=== PATIENT | male | born 1935 | race Caucasian/White ===

== ENCOUNTER 2016-08-12 15:14 | Outpatient (CLI) ==
[2016-08-12 15:33] LABS: BASOPHILS % (AUTO) 0.3 % (0.0-3.0); EOSINOPHILS # (AUTO) 0.1 K/ul (0.0-0.7); HEMATOCRIT 38.8 % (42.0-52.0); IMMATURE GRANULOCYTE % (AUTO) 0.3 % (0.0-5.0); LYMPHOCYTES # (AUTO) 1.6 K/uL (0.60-3.4); LYMPHOCYTES % (AUTO) 23.4 (10.0-50.0); MEAN CORPUSCULAR HEMOGLOBIN 30.4 pg (27.0-31.0); MEAN CORPUSCULAR HGB CONC 33.5 (31.8-35.4); MEAN CORPUSCULAR VOLUME 90.7 fl (80.0-94.0); MONOCYTES # (AUTO) 0.5 K/uL (0.4-2.0); MONOCYTES % (AUTO) 7.1 (0-10); NEUTROPHILS # (AUTO) 4.8 K/ul (2.0-6.9); NEUTROPHILS % (AUTO) 67.9; PLATELET COUNT 339 10^3/uL (140-440); RED BLOOD COUNT 4.28 10^6/ul (4.70-6.10); WHITE BLOOD COUNT 7.02 K/ul (4.2-10.2)
[2016-08-12 15:50] LABS: ANION GAP 12.4; BUN/CREATININE RATIO 20.4; CALCIUM 9.5 mg/dL (8.2-10.2); CREATININE 0.98 mg/dL (0.60-1.10); POTASSIUM 4.4 mmol/L (3.5-5.1)
== END 2016-08-12 15:15 | disposition home or self-care (01) ==
LOC: LAB 15:14
PROVIDERS: ATTEND Family Medicine
DX: Z51.81 Encounter for therapeutic drug level monitoring (principal); Z79.01 Long term (current) use of anticoagulants; R19.7 Diarrhea, unspecified; K62.5 Hemorrhage of anus and rectum
CPT/HCPCS: 36415; 80048; 85025; 85610

== ENCOUNTER 2016-08-25 09:15 | Outpatient (RCR) ==
--- NOTE | 2016-08-11 13:01 | RS.OPPTEV2 ---
Date of Note: 08/10/16 Visit #: 1 Date of Evaluation: 08/10/16 Payer Source: MEDICARE ([facility]) Date of Onset/Injury/Change in Status: 07/22/16 Surgery Performed?: Yes Treatment Diagnosis: Right knee pain, Right knee stiffness, s/p Right TKA History of Condition/Mechanism of Injury:: Patient received Home Health Physical Therapy following D/C after surgery. Reports prior HS tear in the right LE and prior arthroscopy of the right knee several years ago. Prior Level of Function.....Patient was independent with: ADL's, Self Care, Ambulation/Mobility, Community Integration/Access Functional Limitations: Sleep, Self Care, ADL's, Reaching, Pushing, Pulling, Lifting, Carrying, Sitting, Standing, Bending, Squatting, Ambulation, Community Access/Integration Current Subjective/complaints:: Patient reports ambulating with a walker. Reports he is doing well with transfers and ambulation. He has tried using a cane in the house, but is not using it very much. States he ices the knee consistently 2-3 times a day. Reports he has no stairs in his home. Has a few stairs to get into the home, but also has a ramp at a back entrance. He has grab bars in his bathroom. States pain has significantly limited his sleep. States the most sleep he has gotten was ~ three hours last night. He volunteers that he has a fitness watch/tracker and he has been trying to get in a certain amount of steps a day. [facility] therapy told him he is doing too much. His reports that he is not good about performing the HEP he was given by . Treatment Side (optional): Right Medical History Medical History: Hypertension, Cancer Medical History Comments:: Basal cell skin Ca, vertigo Surgical History Comments:: Right knee scope Smoking Status: Never smoker Hx Home Medications: Zanaflex, Cymbalta, oxycodone Patient's Goals: His goal is to return to his previous level of function and get relief of knee pain. Pain Assessment - Pain Description Pain Location: right knee Current Pain Intensity: 2/10 Worst Pain Intensity: 9/10 Functional Outcome Measure LE Functional Scale: 24 (24/80=70% impaired) - G Codes & Severity Modifier G Codes & Modifier: Mobility current CL. Mobility goal CJ Source of G Code score: LE functional scale Observation - Observation Inspection: Right knee demonstrates a clean, well-healing incision line. Patient states incision was glued shut and tape was removed this week by the doctor. Demonstrates bruising along the medial thigh, calf, and ankle. Girth Measurement Lower: Right LE: superior patella 49 cm. inferior patella 41 cm. malleoli 28.5 cm Gait - Gait Pattern Gait Comments: Patient ambulates with a rolling walker with decreased stance on the right LE. Demonstrates decreased right knee and hip flexion during swing phase and decrease heel strike. - Left Knee ROM Left Knee Extension: full extension Left Knee Flexion: 130 (degrees AROM) - Right Knee ROM Right Knee Extension: -6 degrees from full extension Right Knee Flexion: 110 (degrees AROM) Knee ROM Limitations: Soft Tissue Tightness, Pain - Left Knee Strength Left Knee Extension: 4+ Good + Left Knee Flexion: 4+ Good + - Right Knee Strength Right Knee Extension: 4 Good Right Knee Flexion: 4 Good Palpation Comments:: Tenderness along the medial knee joint. Sensation - Sensation Comments: Reports sensation is intact other than numbness in the right great toe. Interventions - Exercise/Activities/Manual Therapy Exercises/Activities: Assisted patient with right knee flexion and extension. Patient performed on the stationary bike for 8 mins, full revolutions. Reviewed HEP and advised him to concentrate more on the HEP than on how many steps he gets in a day. Recommended he add standing hip knee flexion to HEP and to perform the exercises 2-3 x day. Manual Therapy: NA HOME EXERCISE PROGRAM: HEP given by Home Health and added standing knee flexion - Charges Total Direct Minutes: 48 mins Total Treatment Time: 48 mins Procedures billed for this date of service:: EVAL Low Short Term Goals Goal #1: Pt independent and compliant with HEP. Goal to be met by: 08/25/16 Goal #2: Right knee flexion to 120 degrees. Goal to be met by: 08/25/16 Goal #3: Right knee strength 4+/5. Goal to be met by: 08/25/16 Goal #4: Right knee extension to -2 degrees. Goal to be met by: 08/25/16 Furniture Delivery Driver Goals Goal #1: Patient independent with HEP to maintain DC status Goal to be met by: 09/20/16 Goal #2: Pt able to sleep without interruption from right knee pain. Goal to be met by: 06/20/17 Goal #3: LE Functional Scale 60/80 Goal to be met by: 09/20/16 Goal #4: Pt will amb. w/o assist. device, community distances w/ min. gait deviation Goal to be met by: 09/20/16 Plan - Treatment to be Provided Procedures: Therapeutic Exercises, Therapeutic Activity, Manual Therapy, Patient Education Modalities: Electrical Stimulation, Cryotherapy - Treatment Plan Frequency: 3 X week Duration: 4 weeks ORDER # VISITS AND/OR THROUGH DATE: 09/20/16 - Treatment Code (1) Knee pain Qualifiers: Laterality: right Chronicity: acute Qualified Description: Acute pain of right knee Qualifier Code(s): (M25.561) Pain in right knee (2) Aftercare following joint replacement surgery Qualifiers: Joint replacement surgery site: knee Laterality: right Qualified Description: Aftercare following right knee joint replacement surgery Qualifier Code(s): (Z47.1) Aftercare following joint replacement surgery, ( Z96.651) Presence of right artificial knee joint (3) Muscle weakness Comments: M62.81 Right quads and HS weakness
--- NOTE | 2016-08-16 11:16 | RS.OPPTDN ---
Subjective Date of Note: 08/15/16 Visit #: 2 Date of Evaluation: 08/10/16 Payer Source: MEDICARE ([facility]) Treatment Diagnosis: Right knee pain, Right knee stiffness, s/p Right TKA Current Subjective/complaints:: Patient says he is concerned he is not doing as well as he thinks he should. C/o not sleeping but 2-3 hours. He began walking with a cane today. He says that he uses ice often. Reports pain is not terrible, but takes Tylenol. Says he walks a lot, but his (R) hamstring is what gives him a problem. *Precautions: Only precautions were to "not over do it" per patient. Pain Assessment - Pain Description Pain Location: right knee, R hamstring Pain Description: Tenderness upon palpation. Current Pain Intensity: 05/13 - Treatment Modality: Electrical Stim Unattended Parameters/Method Applied: hivolt 4 large pads @ 145-155 pk volts x 20 mins AFTER therex Treatment Area: R knee Patient Position: Supine - Heat/Cryotherapy Treatment: Cryotherapy Interventions - Exercise/Activities/Manual Therapy Exercises/Activities: Assisted patient with right knee flexion and extension. Stretching to R heel cords, Patient performs multiple reps of QS, (attempted Heel slides, but produced pain), SAQ, hip abd/add, SLR, DF with red tband, LAQ, hip flexion in sitting. Patient performed on the stationary bike for 8 mins, full revolutions. Reviewed HEP and encouraged continued use of ice. Total minutes of Exercise: 30 Manual Therapy: NA HOME EXERCISE PROGRAM: HEP given by Home Health and added standing knee flexion - Objective Findings Observations,measurements,etc.: Incision demo well healing, no redness, mild swelling - Charges Total Direct Minutes: 30 Total Treatment Time: 50 Procedures billed for this date of service:: cp, estim(un), ex2 Assessment: Patient demo good flexion to 112 degrees with limitation on ext due to hamstring soreness and hx of ham tear. Patient has very limited sleep since surgery. His expresses concern about it and was encouraged to talk to his MD about possible short term sleep aid. He continues to sleep in recliner, unable to get into his bed. He is consistent with walking routine and icing, but encouraged to perform HEP. Patient Education: Education of diagnosis, Body/Joint mechanics, Home Exercise Program, Home Safety, Activity Modification, Education of Plan of Care Short Term Goals Goal #1: Pt independent and compliant with HEP. Goal to be met by: 08/25/16 Goal #2: Right knee flexion to 120 degrees. Goal to be met by: 08/25/16 Progress towards Goal:: Progressing Goal #3: Right knee strength 4+/5. Goal to be met by: 08/25/16 Progress towards Goal:: Progressing Goal #4: Right knee extension to -2 degrees. Goal to be met by: 08/25/16 Assistant Director Of Admissions Goals Goal #1: Patient independent with HEP to maintain DC status Goal to be met by: 09/20/16 Goal #2: Pt able to sleep without interruption from right knee pain. Goal to be met by: 09/20/16 Goal #3: LE Functional Scale 60/80 Goal to be met by: 09/20/16 Goal #4: Pt will amb. w/o assist. device, community distances w/ min. gait deviation Goal to be met by: 09/20/16 Plan PLAN OF CARE EXPIRES ON:: 09/20/16 ORDER # VISITS AND/OR THROUGH DATE: 09/20/16 PLAN: Progress Exercises
--- NOTE | 2016-08-16 12:07 | RS.OPPTDN ---
Subjective Date of Note: 08/16/16 Visit #: 3 Date of Evaluation: 08/10/16 Payer Source: MEDICARE ([facility]) Treatment Diagnosis: Right knee pain, Right knee stiffness, s/p Right TKA *Precautions: Only precautions were to "not over do it" per patient. Pain Assessment - Pain Description Pain Location: right knee, R hamstring Pain Description: Tenderness upon palpation. Current Pain Intensity: 2/10 - Heat/Cryotherapy Treatment: Cryotherapy (15 mins. prior to exercises) Interventions - Exercise/Activities/Manual Therapy Exercises/Activities: 40 mins. of ankle pumps,quad sets,heelslides,SLR's,joint mobs of Grade II mobs. of AP glides.Patient education of proper techniques for exercises. Total minutes of Exercise: 40 Manual Therapy: NA Total minutes of Manual Therapy: 0 HOME EXERCISE PROGRAM: HEP given by Home Health and added standing knee flexion - Objective Findings Observations,measurements,etc.: 120 active flexion,extension is WNL passively, actively is -7 to-5 degrees. - Charges Total Direct Minutes: 40 Total Treatment Time: 55 Procedures billed for this date of service:: cp,ex 3 Assessment: Patient requires for technique and form with exercises.He has functional R knee motion.He needs assist with SLR's,tends to [place] himself and has difficulty with keeping the knee fully extended.Instructed patient and his to assist with the lifting of the leg,and let the patient do the eccentric motion. Patient Education: Education of diagnosis, Body/Joint mechanics, Home Exercise Program, Home Safety, Activity Modification, Education of Plan of Care Short Term Goals Goal #1: Pt independent and compliant with HEP. Goal to be met by: 08/25/16 Progress towards Goal:: Progressing Goal #2: Right knee flexion to 120 degrees. Goal to be met by: 08/25/16 (120 ,but inconsistent today) Progress towards Goal:: Partially Met Goal #3: Right knee strength 4+/5. Goal to be met by: 08/25/16 Progress towards Goal:: Progressing Goal #4: Right knee extension to -2 degrees. Goal to be met by: 08/25/16 Long-Term Goals Goal #1: Patient independent with HEP to maintain DC status Goal to be met by: 09/20/16 Goal #2: Pt able to sleep without interruption from right knee pain. Goal to be met by: 09/20/16 Goal #3: LE Functional Scale 60/80 Goal to be met by: 09/20/16 Goal #4: Pt will amb. w/o assist. device, community distances w/ min. gait deviation Goal to be met by: 09/20/16 Plan PLAN OF CARE EXPIRES ON:: 09/20/16 ORDER # VISITS AND/OR THROUGH DATE: 09/20/16 PLAN: Continue Plan of Care
--- NOTE | 2016-08-18 11:03 | RS.CXNS ---
Date of scheduled appointment: 08/18/16 Type: Cancel Reason for Cancel/NS: Patient not feeling well.
--- NOTE | 2016-08-22 13:00 | RS.OPPTDN ---
Subjective Date of Note: 08/22/16 Visit #: 4 Date of Evaluation: 08/10/16 Payer Source: MEDICARE ([facility]) Treatment Diagnosis: Right knee pain, Right knee stiffness, s/p Right TKA Current Subjective/complaints:: Patient reports he is doing welll,able to drive to appt. today.He enters clinic without assistive device.He is more aware of doing his HEP on a regular basis as we recommended. *Precautions: Only precautions were to "not over do it" per patient. Pain Assessment - Pain Description Pain Location: right knee, R hamstring Pain Description: Dull, Aching Pain Description: Tenderness upon palpation. Current Pain Intensity: 2/10 Other Comments regarding Pain:: Intermittent - Heat/Cryotherapy Treatment: Cryotherapy (15 mins. after exercises) Interventions - Exercise/Activities/Manual Therapy Exercises/Activities: 50 mins. total ,beginning on bike x 10 mins.standing exercises of calf raises,marching in place,LAQ with 5#.Therapy ball on wall doing mini-squats,then leg press @ 60 #,all exercises 3/10-15 reps.Supine AROM is 120 flexion,extension -3 today.HEP review. Total minutes of Exercise: 50 Manual Therapy: NA Total minutes of Manual Therapy: 0 HOME EXERCISE PROGRAM: HEP given by Home Health and added standing knee flexion - Charges Total Direct Minutes: 40 Total Treatment Time: 65 Procedures billed for this date of service:: ex 3,cp Assessment: Continues to progress well,improved active extension of knee today.He has steadier gait,enters clinic without using cane today.He has soft end feel with knee flexion ,has moderate edema present today. Patient Education: Education of diagnosis, Body/Joint mechanics, Home Exercise Program, Home Safety, Activity Modification, Education of Plan of Care Patient demonstrates compliance with HEP?: Yes Short Term Goals Goal #1: Pt independent and compliant with HEP. Goal to be met by: 08/25/16 Progress towards Goal:: Progressing Goal #2: Right knee flexion to 120 degrees. Goal to be met by: 08/25/16 Progress towards Goal:: Partially Met Goal #3: Right knee strength 4+/5. Goal to be met by: 08/25/16 Progress towards Goal:: Progressing Goal #4: Right knee extension to -2 degrees. Goal to be met by: 08/25/16 Progress towards Goal:: Progressing Trimmer Sawyer Goals Goal #1: Patient independent with HEP to maintain DC status Goal to be met by: 09/20/16 Progress towards goal: Progressing Goal #2: Pt able to sleep without interruption from right knee pain. Goal to be met by: 09/20/16 Goal #3: LE Functional Scale 60/80 Goal to be met by: 09/20/16 Goal #4: Pt will amb. w/o assist. device, community distances w/ min. gait deviation Goal to be met by: 09/20/16 Plan PLAN OF CARE EXPIRES ON:: 09/20/16 ORDER # VISITS AND/OR THROUGH DATE: 09/20/16 PLAN: Continue Plan of Care
--- NOTE | 2016-08-24 14:11 | RS.OPPTDN ---
Subjective Date of Note: 08/24/16 Visit #: 5 Date of Evaluation: 08/10/16 Payer Source: MEDICARE ([facility]) Treatment Diagnosis: Right knee pain, Right knee stiffness, s/p Right TKA Current Subjective/complaints:: Patient reports feeling better today,using ice and Tylenol about 6 hours apart seems to help the R knee pain. *Precautions: Only precautions were to "not over do it" per patient. Pain Assessment - Pain Description Pain Location: right knee, R hamstring Pain Description: Dull Current Pain Intensity: minimal Interventions - Exercise/Activities/Manual Therapy Exercises/Activities: 50 mins. total ,beginning on bike x 10 mins.then 3/15 each of ankle pumps on leg press @ 45 #,60# for leg press both LE's,single leg press for R @ 15 #.Standing with therapy ball behind the back for mini-squats x 15 reps.Seated LAQ's with 5# ,3/10.Supine AROM is 122 - 128 degrees,extension is -5 with quad sets. Total minutes of Exercise: 50 Manual Therapy: NA Total minutes of Manual Therapy: 0 HOME EXERCISE PROGRAM: HEP given by Home Health and added standing knee flexion - Charges Total Direct Minutes: 40 Total Treatment Time: 50 Procedures billed for this date of service:: ex 3 Assessment: Progressing well,less edema ,less warmth in R knee today.He has increased flexion with less difficulty.He reports tenderness on the medial aspect of joint line.He is motivated to improve,entered clinic today without use of assistive device. Patient Education: Body/Joint mechanics, Home Exercise Program Patient demonstrates compliance with HEP?: Yes Short Term Goals Goal #1: Pt independent and compliant with HEP. Goal to be met by: 08/25/16 Progress towards Goal:: Progressing Goal #2: Right knee flexion to 120 degrees. Goal to be met by: 08/25/16 Progress towards Goal:: Met Goal #3: Right knee strength 4+/5. Goal to be met by: 08/25/16 Progress towards Goal:: Progressing Goal #4: Right knee extension to -2 degrees. Goal to be met by: 08/25/16 Progress towards Goal:: Progressing Hyperbaric Tech Goals Goal #1: Patient independent with HEP to maintain DC status Goal to be met by: 09/20/16 Progress towards goal: Progressing Goal #2: Pt able to sleep without interruption from right knee pain. Goal to be met by: 09/20/16 Goal #3: LE Functional Scale 60/80 Goal to be met by: 09/20/16 Goal #4: Pt will amb. w/o assist. device, community distances w/ min. gait deviation Goal to be met by: 09/20/16 Plan PLAN OF CARE EXPIRES ON:: 09/20/16 ORDER # VISITS AND/OR THROUGH DATE: 09/20/16 PLAN: Progress Exercises
--- NOTE | 2016-08-25 10:04 | RS.OPPTDN ---
Subjective Date of Note: 08/25/16 Visit #: 6 Date of Evaluation: 08/10/16 Payer Source: MEDICARE ([facility]) Treatment Diagnosis: Right knee pain, Right knee stiffness, s/p Right TKA Current Subjective/complaints:: Patient says he has already been walking this morning. He says he has had stiffness and swelling remaining to the R knee. Reports he will be getting R facial stitches removed tomorrow. Patient says last night was the first night he was able to sleep in his bed. *Precautions: Only precautions were to "not over do it" per patient. Pain Assessment - Pain Description Pain Location: right knee, R hamstring Pain Description: Dull Pain Description: Tenderness upon palpation. Current Pain Intensity: minimal Interventions - Exercise/Activities/Manual Therapy Exercises/Activities: 48 mins ,beginning on bike x 10 mins.then 1/15 each of ankle pumps on leg press @ 45# 2/15 30#. 60# for leg press both LE's,single leg press for R @ 15 #.Standing with therapy ball behind the back for mini- squats x 15 reps.Seated LAQ's with 5# ,3/10. Standin# for R hip ext, flexion, and abd 2x10. Manual Therapy: NA HOME EXERCISE PROGRAM: HEP given by Home Health and added standing knee flexion - Charges Total Direct Minutes: 48 Total Treatment Time: 38 Procedures billed for this date of service:: ex3 Patient Education: Education of diagnosis, Body/Joint mechanics, Home Exercise Program, Home Safety, Activity Modification, Education of Plan of Care Patient demonstrates compliance with HEP?: Yes Short Term Goals Goal #1: Pt independent and compliant with HEP. Goal to be met by: 08/25/16 Progress towards Goal:: Progressing Goal #2: Right knee flexion to 120 degrees. Goal to be met by: 08/25/16 Progress towards Goal:: Met Goal #3: Right knee strength 4+/5. Goal to be met by: 08/25/16 Progress towards Goal:: Progressing Goal #4: Right knee extension to -2 degrees. Goal to be met by: 08/25/16 Progress towards Goal:: Progressing Penitentiary Goals Goal #1: Patient independent with HEP to maintain DC status Goal to be met by: 09/20/16 Progress towards goal: Progressing Goal #2: Pt able to sleep without interruption from right knee pain. Goal to be met by: 09/20/16 Goal #3: LE Functional Scale 60/80 Goal to be met by: 09/20/16 Goal #4: Pt will amb. w/o assist. device, community distances w/ min. gait deviation Goal to be met by: 09/20/16 Plan PLAN OF CARE EXPIRES ON:: 09/20/16 ORDER # VISITS AND/OR THROUGH DATE: 09/20/16 PLAN: Progress Exercises
== END 2016-08-31 ==
PROVIDERS: ATTEND Orthopaedic Surgery
DX: M25.561 Pain in right knee (principal); M25.661 Stiffness of right knee, not elsewhere classified; Z96.651 Presence of right artificial knee joint

== ENCOUNTER 2016-09-13 13:00 | Outpatient (RCR) ==
--- NOTE | 2016-09-02 11:45 | RS.OPPTDN ---
Subjective Date of Note: 09/02/16 Visit #: 7 Date of Evaluation: 08/10/16 Payer Source: MEDICARE ([facility]) Treatment Diagnosis: Right knee pain, Right knee stiffness, s/p Right TKA Current Subjective/complaints:: Patient says he has had lab work that this week that resulted in Polymyalgia Rheumatica. He says he is currently on treatment consisting of prednisone. He says he has felt weak and unable to walk as much as he was able to before, but was able to walk about 1/3 mile Monday. He says he became quite fatigued and was unsure if he could walk the distance to get back to his car. States he is finally able to sleep about 6 hours and uses ice at least twice daily as well as Tylenol. *Precautions: Only precautions were to "not over do it" per patient. Pain Assessment - Pain Description Pain Location: right knee, R hamstring Pain Description: Tenderness upon palpation. Current Pain Intensity: stiff and general fatigue Interventions - Exercise/Activities/Manual Therapy Exercises/Activities: 36 mins ,beginning on bike x 12 mins. All other routine therex performed slightly modified. Leg presses bilateral #30 3/15, 15# single leg only x 6. Patient supine for calf and ham stretching and ROM R knee. Performs: QS, SLR, SAQ 5#, ham curls and DF with blue tband 3/15. Standin # hip abd, ext 2x15. Measurements taken. Manual Therapy: NA HOME EXERCISE PROGRAM: HEP given by Home Health and added standing knee flexion - Objective Findings Observations,measurements,etc.: Flex 131 active in supine, -3 extension - Charges Total Direct Minutes: 36 Total Treatment Time: 36 Procedures billed for this date of service:: ex2 Assessment: Patient has follow up today with Dr. Ro. He has progressed with ROM well, but has missed this week related to new diagnosis of Polymyalgia Rheumatica. He is being treated with steroids at this time and has resumed walking routine and HEP along with daily icing to the R knee. He should improve with current treatment addressing ND so that he may advance with TKA protocol. Patient Education: Education of diagnosis, Body/Joint mechanics, Home Exercise Program, Home Safety, Activity Modification, Education of Plan of Care Patient demonstrates compliance with HEP?: Yes Short Term Goals Goal #1: Pt independent and compliant with HEP. Goal to be met by: 05/25/17 Progress towards Goal:: Progressing Goal #2: Right knee flexion to 120 degrees. Goal to be met by: 08/25/16 Progress towards Goal:: Met Goal #3: Right knee strength 4+/5. Goal to be met by: 08/25/16 Progress towards Goal:: Progressing Goal #4: Right knee extension to -2 degrees. Goal to be met by: 08/25/16 Progress towards Goal:: Progressing Conservation Technician Goals Goal #1: Patient independent with HEP to maintain DC status Goal to be met by: 09/20/16 Progress towards goal: Progressing Goal #2: Pt able to sleep without interruption from right knee pain. Goal to be met by: 09/20/16 Progress towards goal: Progressing Comments: improving sleep this week Goal #3: LE Functional Scale 60/80 Goal to be met by: 09/20/16 Goal #4: Pt will amb. w/o assist. device, community distances w/ min. gait deviation Goal to be met by: 09/20/16 Plan PLAN OF CARE EXPIRES ON:: 09/20/16 ORDER # VISITS AND/OR THROUGH DATE: 09/20/16 PLAN: Progress Exercises (attend follow up with ortho today and hopefully receive order to continue with PT)
--- NOTE | 2016-09-06 14:16 | RS.OPPTDN ---
Subjective Date of Note: 09/06/16 Visit #: 6 Date of Evaluation: 08/10/16 Payer Source: MEDICARE ([facility]) Treatment Diagnosis: Right knee pain, Right knee stiffness, s/p Right TKA Current Subjective/complaints:: Reports the knee feels better today,dull ache only. *Precautions: Only precautions were to "not over do it" per patient. Pain Assessment - Pain Description Pain Location: right knee, R hamstring Pain Description: Dull Current Pain Intensity: stiff and general fatigue Interventions - Exercise/Activities/Manual Therapy Exercises/Activities: 50 mins ,beginning on bike x 10 mins. Leg presses bilateral #30 06/15, 15# single leg only 06/10 Patient supine for calf and ham stretching and ROM R knee. Performs: QS, SLR, SAQ 5#, ham curls and DF with blue tband 06/15. AROM is 125,progressed to 130,extension is -3 with SAQ,WNL in closed chain. Total minutes of Exercise: 50 Manual Therapy: NA HOME EXERCISE PROGRAM: HEP given by Home Health and added standing knee flexion - Charges Total Direct Minutes: 40 Total Treatment Time: 50 Procedures billed for this date of service:: ex 3 Assessment: Patient has improved quad firing as the edema lessens.He also has increased active flexion today with no report of sharp pain.He is compliant to HEP. Patient Education: Body/Joint mechanics, Home Exercise Program, Home Safety, Activity Modification, Education of Plan of Care Patient demonstrates compliance with HEP?: Yes Short Term Goals Goal #1: Pt independent and compliant with HEP. Goal to be met by: 08/25/16 Progress towards Goal:: Partially Met Goal #2: Right knee flexion to 120 degrees. Goal to be met by: 08/25/16 Progress towards Goal:: Met Goal #3: Right knee strength 4+/5. Goal to be met by: 08/25/16 Progress towards Goal:: Progressing Goal #4: Right knee extension to -2 degrees. Goal to be met by: 08/25/16 Progress towards Goal:: Progressing Shelter Goals Goal #1: Patient independent with HEP to maintain DC status Goal to be met by: 09/20/16 Progress towards goal: Progressing Goal #2: Pt able to sleep without interruption from right knee pain. Goal to be met by: 09/20/16 Progress towards goal: Progressing Goal #3: LE Functional Scale 60/80 Goal to be met by: 09/20/16 Goal #4: Pt will amb. w/o assist. device, community distances w/ min. gait deviation Goal to be met by: 09/20/16 Progress towards goal: Progressing Plan PLAN OF CARE EXPIRES ON:: 09/20/16 ORDER # VISITS AND/OR THROUGH DATE: 09/20/16 PLAN: Progress Exercises
--- NOTE | 2016-09-08 14:02 | RS.OPPTDN ---
Subjective Date of Note: 09/08/16 Visit #: 9 Date of Evaluation: 08/10/16 Payer Source: MEDICARE ([facility]) Treatment Diagnosis: Right knee pain, Right knee stiffness, s/p Right TKA Current Subjective/complaints:: Reports feeling very fatigued today,but pleased with the progress of the knee. *Precautions: Only precautions were to "not over do it" per patient. Pain Assessment - Pain Description Pain Location: right knee Pain Description: Dull Current Pain Intensity: not rated Interventions - Exercise/Activities/Manual Therapy Exercises/Activities: 50 mins ,beginning on bike x 10 mins. Leg presses bilateral #45,60 75# 06/15, then 06/10 @ 90 #.Laq's with black theraband ,.LAQ with 5 # 06/15 reps.Standing hip abd /add with black theraband,06/10 each.AROM is 130 flexion,extension -3.Passive extension is WNL. Total minutes of Exercise: 50 Manual Therapy: NA Total minutes of Manual Therapy: 0 HOME EXERCISE PROGRAM: HEP given by Home Health and added standing knee flexion - Charges Total Direct Minutes: 40 Total Treatment Time: 50 Procedures billed for this date of service:: ex 3 Assessment: Patient tolerates increased resistive exercises well today,with fatigue only,except intermittent ,minimal pain on the medial aspect of the R knee.He has improved gait pattern,no use of assistive device. Patient Education: Education of diagnosis, Body/Joint mechanics, Home Exercise Program, Home Safety, Activity Modification, Education of Plan of Care Patient demonstrates compliance with HEP?: Yes Short Term Goals Goal #1: Pt independent and compliant with HEP. Goal to be met by: 08/25/16 Progress towards Goal:: Partially Met Goal #2: Right knee flexion to 120 degrees. Goal to be met by: 08/25/16 Progress towards Goal:: Met Goal #3: Right knee strength 4+/5. Goal to be met by: 08/25/16 Progress towards Goal:: Partially Met Goal #4: Right knee extension to -2 degrees. Goal to be met by: 08/25/16 Progress towards Goal:: Partially Met Longterm Goals Goal #1: Patient independent with HEP to maintain DC status Goal to be met by: 09/20/16 Progress towards goal: Progressing Goal #2: Pt able to sleep without interruption from right knee pain. Goal to be met by: 09/20/16 Progress towards goal: Progressing Goal #3: LE Functional Scale 60/80 Goal to be met by: 09/20/16 Goal #4: Pt will amb. w/o assist. device, community distances w/ min. gait deviation Goal to be met by: 09/20/16 Progress towards goal: Partially Met Plan PLAN OF CARE EXPIRES ON:: 09/20/16 ORDER # VISITS AND/OR THROUGH DATE: 09/20/16 PLAN: Progress Exercises
--- NOTE | 2016-09-13 14:18 | RS.OPPTDN ---
Subjective Date of Note: 09/13/16 Visit #: 10 Date of Evaluation: 08/10/16 Payer Source: MEDICARE ([facility]) Treatment Diagnosis: Right knee pain, Right knee stiffness, s/p Right TKA Current Subjective/complaints:: Patient says his knee is perfect, it's just the polymyalgia is his hold up. He says current treatment for that is not helping and will be going to the MD tomorrow for it. He says he has been walking 2,000 + steps daily, going up/down 10 steps, using elliptical x 3 mins daily, and sleeping better (8 hours+ with CPAP). He says he had near fall over the weekend though due to fatigue from condition causing his feet to be unsteady. *Precautions: Only precautions were to "not over do it" per patient. Pain Assessment - Pain Description Pain Location: general fatigue, no pain to the knee Pain Description: Dull Current Pain Intensity: not rated Interventions - Exercise/Activities/Manual Therapy Exercises/Activities: 50 mins ,beginning on bike x 11 mins. Leg presses bilateral #45,60 75# 3/15, then 3/10 @ 90#, and x 1 rep at 105#. Standing hip abd /add with black theraband,3/10 each. Reassessment and verified MMT for bilateral hip flexers, Quads, and shoulder abd (per request). Reviewed HeP. Manual Therapy: NA HOME EXERCISE PROGRAM: HEP given by Home Health and added standing knee flexion - Objective Findings Observations,measurements,etc.: LE Functional Index: 60/80 or 25% impairment compared to eval: 24/80 or 70% - Charges Total Direct Minutes: 39 Total Treatment Time: 50 Procedures billed for this date of service:: ex2 Assessment: Patient has met all STG and most LTG related to his TKA. He has been treated for polymyalgia and continues to struggle with endurance because of it. He will be addressing it with his PCP tomorrow. He is satisfied and agreed to with holding further therapy because of his progress. Patient Education: Education of diagnosis, Body/Joint mechanics, Home Exercise Program, Home Safety, Activity Modification, Education of Plan of Care Patient demonstrates compliance with HEP?: Yes Short Term Goals Goal #1: Pt independent and compliant with HEP. Goal to be met by: 08/25/16 Progress towards Goal:: Met Goal #2: Right knee flexion to 120 degrees. Goal to be met by: 08/25/16 Progress towards Goal:: Met Goal #3: Right knee strength 4+/5. Goal to be met by: 08/25/16 Progress towards Goal:: Met (tested today) Goal #4: Right knee extension to -2 degrees. Goal to be met by: 08/25/16 Progress towards Goal:: Met (with active QS) Credit Risk Associate Goals Goal #1: Patient independent with HEP to maintain DC status Goal to be met by: 09/20/16 Progress towards goal: Met Goal #2: Pt able to sleep without interruption from right knee pain. Goal to be met by: 09/20/16 Progress towards goal: Met Comments: using CPAP machine Goal #3: LE Functional Scale 60/80 Goal to be met by: 09/20/16 Progress towards goal: Met Goal #4: Pt will amb. w/o assist. device, community distances w/ min. gait deviation Goal to be met by: 09/20/16 Progress towards goal: Met Plan PLAN OF CARE EXPIRES ON:: 09/20/16 ORDER # VISITS AND/OR THROUGH DATE: 09/20/16 PLAN: Plan for Discharge
--- NOTE | 2016-09-13 15:47 | RS.OPPTDC ---
Date of Discharge: 09/13/16 Date of Evaluation: 08/10/16 Number of Visits: 10 Treatment Diagnosis: Right knee pain, Right knee stiffness, s/p Right TKA Current Complaints/Gains: Patient reports he is pleased with his motion and strength of the right knee. He is able to walk 2,000 steps daily, performs on elliptical 3 mins a day and now sleeps up to 8 hours. Denies right knee pain , but struggles with his new diagnosis of Polymyalgia and limited endurance. Pain Assessment - Pain Description Pain Location: general fatigue, no pain to the knee Pain Description: Dull Current Pain Intensity: not rated Functional Outcome Measure LE Functional Scale: 60 (60/80=25% impairment) - G Codes & Severity Modifier G Codes & Modifier: MOb D/C CJ. Mob Goal CJ Source of G Code score: LE functional scale Gait - Gait Pattern Gait Comments: patient ambulates without an assistive device with minimal gait deviation. Interventions - Exercise/Activities/Manual Therapy Exercises/Activities: NA Manual Therapy: NA HOME EXERCISE PROGRAM: HEP given by Home Health and added standing knee flexion - Objective Findings Observations,measurements,etc.: Right knee flexion 131 degrees. Demonstrates nearly symmetrical weight bearing during gait, without an assistive device. 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 He demonstrate to be very active and agrees to continue with HEP. He needs no further skilled therapy at this time. Short Term Goals Goal #1: Pt independent and compliant with HEP. Goal to be met by: 08/25/16 Progress towards Goal:: Met Goal #2: Right knee flexion to 120 degrees. Goal to be met by: 08/25/16 Progress towards Goal:: Met Goal #3: Right knee strength 4+/5. Goal to be met by: 08/25/16 Progress towards Goal:: Met (tested today) Goal #4: Right knee extension to -2 degrees. Goal to be met by: 08/25/16 Progress towards Goal:: Met (with active QS) Certified Orthotist Practice Manager Goals Goal #1: Patient independent with HEP to maintain DC status Goal to be met by: 09/20/16 Progress towards goal: Met Goal #2: Pt able to sleep without interruption from right knee pain. Goal to be met by: 09/20/16 Progress towards goal: Met Goal #3: LE Functional Scale 60/80 Goal to be met by: 09/20/16 Progress towards goal: Met Goal #4: Pt will amb. w/o assist. device, community distances w/ min. gait deviation Goal to be met by: 09/20/16 Progress towards goal: Met Plan Reason for Discharge:: All Goals Met
== END 2016-09-30 ==
PROVIDERS: ATTEND Orthopaedic Surgery
DX: Z96.651 Presence of right artificial knee joint (principal)

== ENCOUNTER 2017-04-23 11:59 | Outpatient (CLI) | END 2017-04-23 12:00 | disposition home or self-care (01) | LOC: NONPT 11:59 | PROVIDERS: ATTEND Family Medicine | DX: R30.0 Dysuria (principal) | CPT/HCPCS: 81001 ==

== ENCOUNTER 2017-05-24 12:36 | Outpatient (RCR) ==
[2017-05-24 13:17] VITALS: TEMP 98.1; BMI 29.2
[2017-05-29 13:36] VITALS: BP 138/52
== END 2017-05-31 ==
LOC: CAR.REHAB 12:36
PROVIDERS: ATTEND Clinical Nurse Specialist
DX: Z95.1 Presence of aortocoronary bypass graft (principal)
CPT/HCPCS: 93798

== ENCOUNTER 2017-06-01 06:55 | Outpatient (RCR) ==
[2017-06-30 09:57] VITALS: BP 124/56
== END 2017-07-01 ==
LOC: CAR.REHAB 06:55
PROVIDERS: ATTEND Clinical Nurse Specialist
DX: Z95.1 Presence of aortocoronary bypass graft (principal)
CPT/HCPCS: 93798

== ENCOUNTER 2017-07-03 06:32 | Outpatient (RCR) ==
[2017-07-31 10:09] VITALS: BP 128/56
== END 2017-07-31 23:59 ==
LOC: CAR.REHAB 06:32
PROVIDERS: ATTEND Internal Medicine
DX: Z95.1 Presence of aortocoronary bypass graft (principal)
CPT/HCPCS: 93798

== ENCOUNTER 2017-08-01 07:23 | Outpatient (RCR) ==
[2017-08-14 10:18] VITALS: BP 142/54
== END 2017-08-31 23:59 ==
LOC: CAR.REHAB 07:23
PROVIDERS: ATTEND Internal Medicine
DX: Z95.1 Presence of aortocoronary bypass graft (principal)
CPT/HCPCS: 93798

== ENCOUNTER 2017-09-01 07:12 | Outpatient (RCR) | END 2017-09-06 15:03 | disposition home or self-care (01) | LOC: CAR.REHAB 07:12 | PROVIDERS: ATTEND Internal Medicine | DX: Z95.1 Presence of aortocoronary bypass graft (principal) ==

== ENCOUNTER 2017-09-12 19:27 | Outpatient (CLI) | END 2017-09-12 19:47 | disposition short-term general hospital (02) | LOC: AMBL 19:27 | PROVIDERS: ATTEND Family Medicine | DX: M54.9 Dorsalgia, unspecified (principal); R53.1 Weakness; Z98.890 Other specified postprocedural states ==

== ENCOUNTER 2017-09-15 19:34 | Inpatient (IN) ==
[2017-09-15] MEDS ORDERED: ZANAFLEX PO PRN (21:26)
[2017-09-15] MEDS ORDERED: VALIUM PO PRN (21:29)
[2017-09-15] MEDS ORDERED: AMMONIUM LACTATE TP PRN (22:00)
[2017-09-15 22:27] VITALS: BMI 31.6
[2017-09-16] MEDS: PERCOCET 10-325 PO PRN ×3 (03:21→15:21)
[2017-09-16] MEDS: PRILOSEC PO SCH ×2 (07:04→16:53)
[2017-09-16] MEDS ORDERED: ZANAFLEX PO PRN (08:30)
[2017-09-16] MEDS ORDERED: NON-FORMULARY MEDICATION (Atorvastatin Calcium [Lipitor] 40 MG) PO SCH (09:00)
[2017-09-16] MEDS: ASPIRIN EC PO SCH (09:32)
[2017-09-16] MEDS: PREDNISONE PO SCH (09:32)
[2017-09-16] MEDS: ZESTRIL PO SCH (09:33)
[2017-09-16] MEDS: VITAMIN D PO SCH (09:35)
[2017-09-16] MEDS: PROSCAR PO SCH (09:36)
[2017-09-16] MEDS: MULTIVITAMIN TABLET PO SCH (09:36)
[2017-09-16] MEDS: COLACE PO SCH (09:36)
[2017-09-16] MEDS: TIMOPTIC 0.5% OPTH OP SCH ×2 (09:36→20:11)
[2017-09-16] MEDS: BALANCED B-100 PO SCH (09:36)
[2017-09-16] MEDS ORDERED: K-DUR ONE (15:31)
[2017-09-16] MEDS: SINGULAIR PO SCH (20:11)
[2017-09-16] MEDS: XALATAN OP SCH (20:11)
[2017-09-16] MEDS: LIPITOR PO SCH (20:11)
[2017-09-16] MEDS: FLONASE NAS SCH (20:11)
[2017-09-16] MEDS: FLOMAX PO SCH (20:11)
[2017-09-16] MEDS ORDERED: FLUTICASONE 50 MCG IH SCH (21:00)
[2017-09-16] MEDS: DULCOLAX RC PRN (21:32)
[2017-09-17] MEDS: PERCOCET 10-325 PO PRN ×4 (01:56→21:32)
[2017-09-17] MEDS: PRILOSEC PO SCH ×2 (05:49→17:25)
[2017-09-17] MEDS: ASPIRIN EC PO SCH (09:11)
[2017-09-17] MEDS: COLACE PO SCH (09:12)
[2017-09-17] MEDS: PREDNISONE PO SCH (09:13)
[2017-09-17] MEDS: PROSCAR PO SCH (09:14)
[2017-09-17] MEDS: MULTIVITAMIN TABLET PO SCH (09:14)
[2017-09-17] MEDS: ZESTRIL PO SCH (09:14)
[2017-09-17] MEDS: BALANCED B-100 PO SCH (09:15)
[2017-09-17] MEDS: VITAMIN D PO SCH (09:16)
[2017-09-17] MEDS: TIMOPTIC 0.5% OPTH OP SCH ×2 (09:16→20:27)
[2017-09-17] MEDS ORDERED: SENNA PO PRN (10:56)
[2017-09-17] MEDS: MIRALAX PO SCH (12:22)
[2017-09-17] MEDS: LIPITOR PO SCH (20:26)
[2017-09-17] MEDS: FLOMAX PO SCH (20:26)
[2017-09-17] MEDS: SINGULAIR PO SCH (20:26)
[2017-09-17] MEDS: XALATAN OP SCH (20:27)
[2017-09-17] MEDS: FLONASE NAS SCH (20:34)
[2017-09-18] MEDS: PERCOCET 10-325 PO PRN ×5 (03:11→22:05)
[2017-09-18] MEDS: PRILOSEC PO SCH ×2 (05:56→18:58)
[2017-09-18] MEDS: SENNA PO PRN ×2 (08:40→22:02)
[2017-09-18] MEDS: ASPIRIN EC PO SCH (10:20)
[2017-09-18] MEDS: PROSCAR PO SCH (10:21)
[2017-09-18] MEDS: PREDNISONE PO SCH (10:21)
[2017-09-18] MEDS: COLACE PO SCH (10:21)
[2017-09-18] MEDS: ZESTRIL PO SCH (10:21)
[2017-09-18] MEDS: BALANCED B-100 PO SCH (10:21)
[2017-09-18] MEDS: VITAMIN D PO SCH (10:21)
[2017-09-18] MEDS: MULTIVITAMIN TABLET PO SCH (10:22)
[2017-09-18] MEDS: TIMOPTIC 0.5% OPTH OP SCH ×2 (10:23→20:55)
[2017-09-18] MEDS: MIRALAX PO SCH (10:30)
--- NOTE | 2017-09-18 10:39 | RS.PTINEVL ---
Subjective - Patient information Date of Evaluation: 09/18/17 Date of Arrival on Unit: 09/15/17 Admitted From:: Facility Transfer Diagnosis: s/p lumbar surgery 09/11/17, decline in functional ability, gait difficulty Usual Living Arrangement: With Spouse Living Arrangement Comments: stable Home Environment: House, Stairs (few) (into shower), Ramp Medical History: Hypertension, Arthritis Medical History Comments:: Chronic Kidney disease-3, Depression, sleep apnea, polymyalgia rheumatica, neuropathy,anemia, chronic back pain. Surgical History: Knee Replacement (Right knee 1-2 years ago,), CABG (in May 2017) Subjective Information/ Patient Comments:: Patient states he went home the day after surgery. States it took five people to get him into his home. States he was sitting in his recliner at home and when he tried to get out of the chair, he slid down into the floor. States he was then taken back to [facility]. He wants to be able to get up from the floor because he is afraid he will fall again. Reports pain into the left groin and muscle spasms in his trunk. While ambulating, rates his pain in the left groin 6-10/10. Reports he had pain medication at 8:40 this morning. - Level of function Prior to this admission, the patient could do the following:: Independent Selfcare, Independent ADL's, Independent Ambulation, Drive, Participated in Social Activities Outside home Abilities prior to this admission: Prior to his surgery, Mr. Caputo was independent with all activities. He is known by our therapy staff to be a very motivated, active person. Current Level of Function: Partially Dependent Current Equipment Used at Home: Cane, rolling walker, w/c, raised toilet, step in shower, outside ramp, 36 " doors Interventions - Objective Patient Orientation: Person, Place, Time, Situation Current Interventions: Telemetry Observation: Pt able to flora LSO brace with minimal assistance with velcro straps. Range of Motion - ROM Right Lower Extremity AROM: WFL's Left Lower Extremity AROM: WFL's Muscle Strength - Muscle Strength Comments:: LE strength is generally 4- to 4/5 of bilateral LE's. Sensation - Sensation Right Lower Extremity Sensation: Intact/Normal Left Lower Extremity Sensation: Intact/Normal Comments: Reports intact sensation to light touch. Balance - Sitting Balance and Reactions Static Sitting Balance: Good Dynamic Sitting Balance: Good - Standing Balance and Reactions Static Standing Balance: Good (-) Dynamic Standing Balance: Fair (+) Functional Mobility - Bed Mobility Scooting: Supervision Supine to Sit: CGA, Min Assist, 1 person assist, Verbal Cues, Tactile Cues - Transfers Sit to Stand: CGA, Min Assist, 2 person assist, Verbal Cues, Tactile Cues Stand to Sit: Min Assist, 1 person assist, 2 person assist, Verbal Cues, Tactile Cues Stand Pivot Transfers: CGA, Min Assist, 1 person assist, 2 person assist, Verbal Cues, Tactile Cues - Safety Awareness Safety Awareness: Fair KUMAR INDEX SCORE: 40 Ambulation - Ambulation Weight Bearing Status: FWB Assistive Device Used: Rolling Walker Orthotic/Prosthetic Device: Yes (LSO brace ) Distance: 50 feet X 2 , patient followed with chair Assistance needed with Ambulation: Min Assist, Mod Assist, 2 person assist, Verbal Cues, Tactile Cues Gait Deviations: Wide Based gait, Short stride, Lacks step continuity Ambulation Comments: Tinetti Assessment score of 28. High fall risk Factors Affecting Ambulation: Pain, Weakness, Decreased ROM, Decreased Safety, Limited Endurance Treatment time - Units charged Gait trainin (17 mins) - Time with patient Total treatment time: 37 (mins) Patient Education - Education Patient Education: Education of diagnosis, Education of Plan of Care Teaching Recipient: Patient Teaching Methods: Discussion Comments: Discussed with patient that we would not be working on getting in and out of the floor. Explained that that would be too much stress on his back since his recent surgery. Assessment - Assessment Problem List:: Decreased level of function, Requires training/education, Decreased safety/Risk of falls, Weakness, Pain limits previous level of function Rehab Potential: Good Further Therapy Indicated?: Yes Candidate for Swing Bed for Therapy Services?: Patient is a good candidate for Swing Bed. He is at a high risk for falls per Tinetti Assessment and overall presentation, and shows need for skilled care at this time due to limited transfers and ambulation due to leg weakness and pain. Evaluation Complexity: HISTORY: Medium (lumbar sx 09/11/17, CABG 05/21, right TKA , chronic back pain, neuropathy), EXAM OF BODY SYSTEMS: Medium, CLINICAL PRESENTATION: Medium, CLINICAL DECISION MAKING: Medium Short Term Goals GOAL #1: Pt to log roll independently with verbal cues. Goal to be met by: 09/21/17 GOAL #2: Sit to stand with consistent use of UE's from seat with min of one. Goal to be met by: 09/21/17 GOAL #3: Pt to amb. with min assist of one with continuous steps, 75 feet. Goal to be met by: 09/22/17 Skilled Nursing Goals GOAL #1: All bed mobility independent. Goal to be met by: 09/25/17 GOAL #2: All transfers independent with good safety. Goal to be met by: 09/25/17 GOAL #3: Pt to amb. independently 200 feet with supervision and good safety. Goal to be met by: 09/25/17 Plan Plan of Care: Therapeutic EX, Neuromuscular Re-Educ, Therapeutic Activity, Self- Care/Home Management Modalities: Cold Pack/Cryotherapy Frequency of Treatment: 1-2 X day, as tolerated Duration of Treatment: 1 Week Anticipated Discharge Destination: Home Treatment Diagnosis (ICD 10 Codes): M62.81 general weakness, R26.2 difficulty walking, M54.5 back pain Has the Physician been added for Co-signature?: Yes
--- NOTE | 2017-09-18 11:39 | RS.OTINEVL ---
Subjective - Patient information Date of Evaluation: 09/18/17 Date of Arrival on Unit: 09/15/17 Admitted From:: Facility Transfer Usual Living Arrangement: With Spouse Living Arrangement Comments: stable Home Environment: House, Stairs (few) (into shower), Ramp Medical History: Hypertension, Arthritis Medical History Comments:: Chronic Kidney disease-3, Depression, sleep apnea, polymyalgia rheumatica, neuropathy,anemia, chronic back pain. Surgical History: Knee Replacement (Right knee 1-2 years ago,), CABG (in May 2017) Surgical History Comments:: Back surgery, double bypass surgery, CABG Subjective Information/ Patient Comments:: "It hurts in this left leg." "My back doesn't hurt right now. They had to cut off the bones because they were hitting the nerves." - Level of function Prior to this admission, the patient could do the following:: Independent Selfcare, Independent ADL's, Independent Ambulation, Drive, Participated in Social Activities Outside home Abilities prior to this admission: Pt was independent with all ADLS. He was driving a truck. Pt was able to dress himself and he would use a rolling walker intermittently right before surgery. Current Level of Function: Partially Dependent Current Equipment Used at Home: Cane, rolling walker, w/c, raised toilet, step in shower, outside ramp, 36 " doors Pain Assessment - Pain Pain Score: 7 Side: left Pain Location Body Site: Thigh Pain Aggravating Factors: ADL's, Changing Position, Standing Pain Alleviating Factors: Medication, Position Change Interventions - Objective Patient Orientation: Person, Place, Time, Situation Current Interventions: IV's, Telemetry Observation: Pt is a very active 81 y/o patient. Pt is very motivated to get home quickly. Pt is in alot of pain in the left thigh. Pt has a difficult time with sit to stand, with dressing on the BLE. Pt has difficult reaching his feet. Pt tires with functional mobility and has decreased activity tolerance. Interventions - ROM Right Upper Extremity AROM: Slight limitation Left Upper Extremity AROM: Slight limitation - Strength Right Upper Extremity Strength: Mild Weakness Left Upper Extremity Strength: Mild Weakness - Sensation Right Upper Extremity Sensation: Intact/Normal Left Upper Extremity Sensation: Intact/Normal Balance - Sitting Balance Static Sitting Balance: Good Dynamic Sitting Balance: Good - Standing Balance Static Standing Balance: Poor Dynamic Standing Balance: Poor - Comments Balance Assessment Comments: Fair- ADL Skills - Self Feeding Self Feeding: Independent - Grooming Grooming: Min Assist - Bathing Bathing UE: Min Assist, 1 person assist Bathing LE: Max Assist, 1 person assist - Dressing Dressing UE: Min Assist Dressing LE: Max Assist, 1 person assist - Toilet Management Toileting Management: Mod Assist, 1 person assist Functional Mobility - Bed Mobility Rolling R/L: Independent Scooting: Independent Supine to Sit: Min Assist Sit to Supine: Min Assist - Transfers Sit to Stand: Mod Assist Stand to Sit: Min Assist Stand Pivot Transfers: Mod Assist - Ambulation Weight Bearing Status: FWB Assistive Device Used: Rolling Walker Assistance needed with Ambulation: Min Assist - Safety Awareness Safety Awareness: Good KUMAR INDEX SCORE: 40 Additional Treatment Performed - Additional units charged ADL: 18 - Time with patient Total treatment time: 50 Activities Would you be interested in leaving your room for activities?: Yes What types of things do you enjoy doing? 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[employer] , President of [employer] Patient Interests:: Watching Television, Visiting/Socializing Patient Education Patient Education: Education of diagnosis, Home Safety, Education of Plan of Care Teaching Recipient: Patient Teaching Methods: Discussion Assessment Problem List:: Decreased level of function, Requires training/education, Decreased safety/Risk of falls, Weakness, Pain limits previous level of function Rehab Potential: Good Further Therapy Indicated?: Yes Candidate for Swing Bed for Therapy Services?: yes Evaluation Complexity: HISTORY: Medium, EXAM OF BODY SYSTEMS: Medium, CLINICAL DECISION MAKING: Medium Short Term Goals - Goals GOAL 1: Pt to increase LB dressing to Moderate assistance Goal to be met by: 09/20/17 GOAL 2: To increase dyn. Std. activity tolerance to 15 minutes with rests PRN. Goal to be met by: 09/20/17 GOAL 3: To increase toilet transfer to minimal assistance. Goal to be met by: 09/21/17 GOAL 4: To increase BUE strength to 4+/5 for ambulation with a RW. Skilled Nursing Goals GOAL 1: To increase independence of ADLS to CGA with AE. Goal to be met by: 09/22/17 GOAL 2: to increase dyn. std. activity tolerance to 20 minutes. Goal to be met by: 09/22/17 GOAL 3: To increase BUE strength to 5/5 for ambulation with a RW. Goal to be met by: 09/22/17 Plan Plan of Care: Therapeutic EX, Neuromuscular Re-Educ, Therapeutic Activity, Self- Care/Home Management Frequency of Treatment: 1-2 X day, as tolerated Duration of Treatment: 1 Week Anticipated Discharge Destination: Home Treatment Diagnosis (ICD 10 Codes): muscle weakness Has the Physician been added for Co-signature?: Yes
[2017-09-18] MEDS: DULCOLAX RC PRN (13:49)
[2017-09-18] MEDS ORDERED: PROTONIX PO STA (17:20)
[2017-09-18] MEDS: FLONASE NAS SCH (20:54)
[2017-09-18] MEDS: XALATAN OP SCH (20:54)
[2017-09-18] MEDS: LIPITOR PO SCH (20:55)
[2017-09-18] MEDS: SINGULAIR PO SCH (20:56)
[2017-09-18] MEDS: FLOMAX PO SCH (20:56)
[2017-09-19] MEDS: PERCOCET 10-325 PO PRN ×5 (03:24→20:58)
[2017-09-19] MEDS: PROTONIX PO SCH (05:46)
[2017-09-19] MEDS: COLACE PO SCH (09:27)
[2017-09-19] MEDS: MULTIVITAMIN TABLET PO SCH (09:27)
[2017-09-19] MEDS: BALANCED B-100 PO SCH (09:27)
[2017-09-19] MEDS: PREDNISONE PO SCH (09:27)
[2017-09-19] MEDS: ZESTRIL PO SCH (09:27)
[2017-09-19] MEDS: PROSCAR PO SCH (09:28)
[2017-09-19] MEDS: ASPIRIN EC PO SCH (09:28)
[2017-09-19] MEDS: VITAMIN D PO SCH (09:28)
[2017-09-19] MEDS: MIRALAX PO SCH (09:28)
[2017-09-19] MEDS: TIMOPTIC 0.5% OPTH OP SCH ×2 (16:53→20:59)
[2017-09-19] MEDS: LIPITOR PO SCH (20:57)
[2017-09-19] MEDS: FLOMAX PO SCH (20:57)
[2017-09-19] MEDS: SINGULAIR PO SCH (20:58)
[2017-09-19] MEDS: SENNA PO PRN (20:58)
[2017-09-19] MEDS: FLONASE NAS SCH (20:59)
[2017-09-19] MEDS: XALATAN OP SCH (20:59)
[2017-09-20] MEDS: PERCOCET 10-325 PO PRN ×3 (03:48→18:00)
[2017-09-20] MEDS: PROTONIX PO SCH (06:04)
[2017-09-20] MEDS: MULTIVITAMIN TABLET PO SCH (08:45)
[2017-09-20] MEDS: PREDNISONE PO SCH (08:45)
[2017-09-20] MEDS: PROSCAR PO SCH (08:45)
[2017-09-20] MEDS: ASPIRIN EC PO SCH (08:45)
[2017-09-20] MEDS: ZESTRIL PO SCH (08:45)
[2017-09-20] MEDS: COLACE PO SCH (08:46)
[2017-09-20] MEDS: VITAMIN D PO SCH (08:46)
[2017-09-20] MEDS: BALANCED B-100 PO SCH (08:46)
[2017-09-20] MEDS: TIMOPTIC 0.5% OPTH OP SCH ×2 (08:46→20:54)
[2017-09-20] MEDS: MIRALAX PO SCH (08:46)
[2017-09-20] MEDS: XALATAN OP SCH (20:53)
[2017-09-20] MEDS: FLOMAX PO SCH (20:53)
[2017-09-20] MEDS: LIPITOR PO SCH (20:53)
[2017-09-20] MEDS: SINGULAIR PO SCH (20:53)
[2017-09-21] MEDS: PERCOCET 10-325 PO PRN ×2 (02:18→09:22)
[2017-09-21 05:17] VITALS: BP 125/71; TEMP 98
[2017-09-21] MEDS: PROTONIX PO SCH (05:40)
[2017-09-21] MEDS: TIMOPTIC 0.5% OPTH OP SCH (08:33)
[2017-09-21] MEDS: VITAMIN D PO SCH (08:33)
[2017-09-21] MEDS: ASPIRIN EC PO SCH (08:33)
[2017-09-21] MEDS: PREDNISONE PO SCH (08:33)
[2017-09-21] MEDS: BALANCED B-100 PO SCH (08:33)
[2017-09-21] MEDS: MIRALAX PO SCH (08:33)
[2017-09-21] MEDS: ZESTRIL PO SCH (08:33)
[2017-09-21] MEDS: COLACE PO SCH (08:33)
[2017-09-21] MEDS: MULTIVITAMIN TABLET PO SCH (08:33)
[2017-09-21] MEDS: PROSCAR PO SCH (08:34)
== END 2017-09-21 15:45 | disposition home or self-care (01) | DRG 948 ==
LOC: MEDSURG B 19:34
PROVIDERS: ADMIT Family Medicine; ATTEND Family Medicine
DX: R53.1 Weakness (principal); M19.90 Unspecified osteoarthritis, unspecified site; R26.2 Difficulty in walking, not elsewhere classified; M47.9 Spondylosis, unspecified; G47.61 Periodic limb movement disorder; M35.3 Polymyalgia rheumatica; I10 Essential (primary) hypertension; E78.5 Hyperlipidemia, unspecified; N18.3 Chronic kidney disease, stage 3 (moderate); D64.9 Anemia, unspecified; F41.8 Other specified anxiety disorders; I48.91 Unspecified atrial fibrillation; I25.10 Atherosclerotic heart disease of native coronary artery without angina pectoris; G47.33 Obstructive sleep apnea (adult) (pediatric); H40.9 Unspecified glaucoma; Z72.0 Tobacco use; Z86.718 Personal history of other venous thrombosis and embolism; Z79.01 Long term (current) use of anticoagulants; Z86.711 Personal history of pulmonary embolism; Z91.81 History of falling
CPT/HCPCS: 36415; 80053; 85025; 97802